=== PATIENT | female | born 1945 | race Caucasian/White ===

== ENCOUNTER → 2018-04-09 | Day surgery (SDC) | payer MEDICARE, BC ==
[~2018-04-09] MED LIST: AMLODIPINE BESYL5 MG PO; BUPIVACAINE 0.25% 30ML SDV INJ ONE; DIOVAN160 MG PO; FENTANYL CITRATE/PF 100MCG/2 ML INJ ONE; FLECAINIDE ACE100 MG PO; HYDROCHLOROTHIA25 MG PO; IOPAMIDOL 200 MG/ML 20 ML VIAL IT ONE; LIDOCAINE HCL 1% 30ML-PF VIAL ONE; LIDOCAINE HCL 2% LOCAL INJ 5 ML SDV VIAL INJ ONE; METHOTREXATE2.5 MG PO; METOPROLOL TART50 MG PO; MIDAZOLAM HCL 2 MG/2 ML VIAL ONE; ORENCIA 250 MG250 MG IV; PROPOFOL IV EMULSION 10 MG/ML 20 ML VIAL ONE; VALACYCLOVIR500 MG PO
[2018-04-09 07:08] LABS: HEMATOCRIT 42.8 % (34.2-44.1); HEMOGLOBIN 14.6 g/dL (12.0-16.0); MEAN CORPUSCULAR HEMOGLOBIN 31.7 pg (28-32); MEAN CORPUSCULAR HGB CONC 34.1 g/dL (31-35); NEUTROPHILS % 54.5 % (38.7-80.0); PLATELET COUNT 157 x10e3/uL (140-360); RED CELL DISTRIBUTION WIDTH 12.9 % (11.7-14.4)
[2018-04-09 07:09] LABS: BASOPHILS % 0.6 % (0.0-1.0); EOSINOPHILS # (AUTO) 0.1 (0.0-0.4); EOSINOPHILS % 1.1 % (0.0-6.0); LYMPHOCYTES # (AUTO) 1.9 (1.0-3.2); LYMPHOCYTES % 35.1 % (18.0-39.1); MONOCYTES # (AUTO) 0.5 (0.2-0.8); MONOCYTES % 8.5 % (4.4-11.3)
== END | disposition home or self-care (01) ==
LOC: OR 05:20
PROVIDERS: ATTEND Physical Medicine & Rehabilitation Pain Medicine
DX: B02.9 Zoster without complications (principal); I10 Essential (primary) hypertension; I44.0 Atrioventricular block, first degree; I48.91 Unspecified atrial fibrillation; I25.10 Atherosclerotic heart disease of native coronary artery without angina pectoris; M06.9 Rheumatoid arthritis, unspecified
CPT/HCPCS: 36415; 64510; 85025; 93005; J2001 ×2; J2250; Q9966; 77003

== ENCOUNTER → 2018-04-16 | Day surgery (SDC) | payer MEDICARE, BC ==
[~2018-04-16] MED LIST changes: -LIDOCAINE HCL 2% LOCAL INJ 5 ML SDV VIAL INJ ONE
== END | disposition home or self-care (01) ==
LOC: OR 05:36
PROVIDERS: ATTEND Physical Medicine & Rehabilitation Pain Medicine
DX: B02.9 Zoster without complications (principal); B02.29 Other postherpetic nervous system involvement; I10 Essential (primary) hypertension; I25.10 Atherosclerotic heart disease of native coronary artery without angina pectoris; I48.91 Unspecified atrial fibrillation; M06.9 Rheumatoid arthritis, unspecified
CPT/HCPCS: 64510; 77003; J2001; J2250; Q9966

== ENCOUNTER → 2018-04-30 | Day surgery (SDC) | payer MEDICARE, BC ==
[~2018-04-30] MED LIST changes: +LIDOCAINE HCL 2% LOCAL INJ 5 ML SDV VIAL INJ ONE; -MIDAZOLAM HCL 2 MG/2 ML VIAL ONE
== END | disposition home or self-care (01) ==
LOC: OR 05:11
PROVIDERS: ATTEND Physical Medicine & Rehabilitation Pain Medicine
DX: B02.29 Other postherpetic nervous system involvement (principal); B02.9 Zoster without complications; I10 Essential (primary) hypertension; I44.0 Atrioventricular block, first degree; M06.9 Rheumatoid arthritis, unspecified; I25.10 Atherosclerotic heart disease of native coronary artery without angina pectoris; I48.91 Unspecified atrial fibrillation
CPT/HCPCS: 64510; 77003; J2001 ×2; Q9966